=== PATIENT | male | born 1985 | race African-American/Black ===

== ENCOUNTER 2018-04-08 07:35 | Emergency (ER) | payer MEDICAID ==
[~2018-04-08] VITALS: Ht 182.9 cm; Wt 97.7 kg
[2018-04-08 07:38] VITALS: BP 153/95
[2018-04-08] MEDS ORDERED: IBUPROFEN 800 MG TABLET PO ONE (08:45)
== END 2018-04-08 09:52 | disposition home or self-care (01) ==
LOC: EMS 07:37
DX: J06.9 Acute upper respiratory infection, unspecified (principal); R03.0 Elevated blood-pressure reading, without diagnosis of hypertension; F17.210 Nicotine dependence, cigarettes, uncomplicated
CPT/HCPCS: 99282